=== PATIENT | male | born 1995 | race Caucasian/White ===

== ENCOUNTER 2019-05-31 06:39 | Emergency (ER) | payer SELFPAY ==
[~2019-05-31] VITALS: Ht 170.2 cm; Wt 65.8 kg
[2019-05-31 06:43] VITALS: BP_SYST 150
--- NOTE | 2019-05-31 07:05 | NUR ---
Placed in room 5 . Placed on gas furnace installer, blood pressure machine and pulse oximeter. To gown for exam. Side rails up. Report given to OZIEL BARKSDALE.
--- NOTE | 2019-05-31 07:27 | NUR ---
phlebotomy technologist at bedside as ordered by Dr. Sanchez collecting blood specimen. Patient tolerated the procedure well.
[2019-05-31] MEDS ORDERED: NACL 0.9% 1,000 ML IV ONE ×2 (07:30)
--- NOTE | 2019-05-31 07:30 | NUR ---
Patient brought in by ambulance in the ED, he was found unresponsive, was given 2x Narcan intranasally and 2x Narcan IM this morning. Patient denied any chest pain or shortness of breath. Denied any fevers, chills, nausea, or vomiting. Patient is alert and oriented x2, respirations even and unlabored, speaking in full sentences. VSS, pain level 0/10. Informed of approximate wait time. Instructed to notify ED staff for any changes in condition or worsening of symptoms. Patient verbalized understanding.
[2019-05-31 07:37] LABS: BASOPHILS # (AUTO) 0.1 K/uL (0.0-0.2); BASOPHILS % (AUTO) 0.6 % (0.0-2.0); EOSINOPHILS # (AUTO) 0.1 K/uL (0.0-0.4); EOSINOPHILS % (AUTO) 1.2 % (0.0-4.0); HEMATOCRIT 42.4 % (36-54); HEMOGLOBIN 14.5 g/dL (14.0-18.0); LYMPHOCYTES # (AUTO) 1.7 K/uL (1.0-5.5); MEAN CORPUSCULAR HEMOGLOBIN 31 pg (27-31); MEAN CORPUSCULAR HGB CONC 34 % (32-36); MEAN CORPUSCULAR VOLUME 90 fL (79.0-98.0); MONOCYTES # (AUTO) 0.6 K/uL (0.0-1.0); MONOCYTES % (AUTO) 6.8 % (1.7-9.3); NEUTROPHILS # (AUTO) 6.7 K/uL (1.8-7.7); NEUTROPHILS % (AUTO) 72.4 % (40.0-70.0); PLATELET COUNT (AUTO) 430 K/uL (130-430); RED BLOOD CELL COUNT(AUTO) 4.71 MIL/uL (4.2-6.2); RED CELL DISTRIBUTION WIDTH 13.9 % (9.0-15.0); WHITE BLOOD COUNT (AUTO) 9.2 K/uL (4.8-10.8)
[2019-05-31 07:45] LABS: ANION GAP 10 (5-15); CALCIUM 8.7 mg/dL (8.4-11.0); CHLORIDE 103 mmol/L (98-107); CREATININE 0.87 mg/dL (0.55-1.30); GLUCOSE 101 mg/dL (70-99); SODIUM SERUM 139 mmol/L (136-145); UREA NITROGEN, BLOOD 12 mg/dL (8-21)
--- NOTE | 2019-05-31 07:45 | NUR ---
ER Dr. Sanchez at bedside examining patient.
[2019-05-31 07:51] LABS: ALANINE AMINOTRANSFERASE 30 U/L (12-78); ASPARTATE AMINOTRANSFERASE 18 U/L (10-37); TOTAL BILIRUBIN 0.3 mg/dL (0.0-1.0)
[2019-05-31] MEDS ORDERED: POTASSIUM CHLORIDE 20 MEQ/PKT PACKET PO ONE (08:00)
--- NOTE | 2019-05-31 08:00 | NUR ---
Medicated per MD orders. IVF infusing with no s/s of infiltration at this time. Will cont to monitor
--- NOTE | 2019-05-31 08:01 | NUR ---
Administered Potassium PO as ordered by Dr. Sanchez. Patient tolerated the medication well. See eMAR for details.
[2019-05-31 08:02] LABS: ALCOHOL, BLOOD < 3 mg/dL (<10); GFR AFRICAN AMERICAN 138 mL/min (>90); POTASSIUM 2.9 mmol/L (3.5-5.1)
[2019-05-31 08:03] LABS: ACETAMINOPHEN < 1 ug/mL (1-30)
[2019-05-31 08:37] LABS: BILIRUBIN,URINE NEGATIVE (NEGATIVE); CLARITY/URINE CLEAR (CLEAR); COLOR,URINE YELLOW (YELLOW); GLUCOSE,URINE NEGATIVE (NEGATIVE); KETONES,URINE NEGATIVE (NEGATIVE); LEUKOCYTE ESTERASE ,URINE NEGATIVE (NEGATIVE); NITRITE, URINE NEGATIVE (NEGATIVE); PROTEIN URINE TRACE (NEGATIVE); UROBILINOGEN,URINE 0.2 (0.2-1.0)
[2019-05-31 08:46] LABS: BLOOD, URINE TRACE (NEGATIVE)
[2019-05-31 08:49] LABS: BACTERIA,URINE RARE /HPF (None Seen); MUCUS,URINE 1+ /LPF (None Seen); RBC,URINE 0-3 /HPF (0-3); WBC,URINE 0-3 /HPF (0-3)
[2019-05-31 08:50] LABS: BARBITURATE, URINE NEGATIVE (NEG <=200); BENZODIAZEPINE, URINE NEGATIVE (NEG <=150); COCAINE, URINE NEGATIVE (NEG <=150); PHENCYCLIDINE SCREEN,URINE NEGATIVE (NEG <=25); UR TRICYCLIC ANTIDEPRESSANTS NEGATIVE (NEG <=300); URINE METHADONE NEGATIVE (NEG <=200); URINE OXYCODONE SCREEN NEGATIVE (NEG <=100); URINE PROPOXYPHENE SCREEN NEGATIVE (NEG <=300)
[2019-05-31 08:51] LABS: CANNABINOID, URINE POSITIVE (NEG <=50); METHAMPHETAMINES SCREEN,URINE POSITIVE (NEG <=500); OPIATE, URINE POSITIVE (NEG <=100); URINE AMPHETAMINE POSITIVE (NEG <=500)
[2019-05-31 09:30] VITALS: BP_SYST 124
== END 2019-05-31 09:30 | disposition home or self-care (01) ==
LOC: SED 06:39 → EDBD 06:39 → SED 09:30
DX: T40.1X1A Poisoning by heroin, accidental (unintentional), initial encounter (principal); F12.90 Cannabis use, unspecified, uncomplicated; F15.90 Other stimulant use, unspecified, uncomplicated; Y92.89 Other specified places as the place of occurrence of the external cause
CPT/HCPCS: 36415; 80053; 80307; 81000; 85025; 96360; 96361; 99283; G0480; G0481; G0482; J7030